=== PATIENT | male | born 1960 | race African-American/Black ===

== ENCOUNTER 2017-04-09 14:07 | Emergency (ER) | payer MEDICAID ==
[~2017-04-09] VITALS: Ht 185.4 cm; Wt 85.0 kg
[2017-04-09] MEDS ORDERED: ONDANSETRON 4MG ODT PO ONE (15:15)
[2017-04-09] MEDS ORDERED: HYDROCODONE/ACETAMINOPHEN 10/325MG TABLET PO ONE (15:15)
[2017-04-09] MEDS ORDERED: MORPHINE SULFATE 4 MG/ML CPJ (NOT FOR IM USE) IV ONE ×2 (15:45→17:30)
[2017-04-09 18:30] VITALS: BP 144/68
== END 2017-04-09 18:32 | disposition home or self-care (01) ==
LOC: ER 14:09
PROC: 2W3AX1Z Immobilization of Right Upper Arm using Splint (ICD-10-PCS; principal; 2017-04-09)
DX: S42.401A Unspecified fracture of lower end of right humerus, initial encounter for closed fracture (principal); M25.521 Pain in right elbow; W18.31XA Fall on same level due to stepping on an object, initial encounter; Y93.89 Activity, other specified; Y92.89 Other specified places as the place of occurrence of the external cause; F12.10 Cannabis abuse, uncomplicated
CPT/HCPCS: 29105; 73070; 96374; 96376; 99284; J2270; Q0162